=== PATIENT | female | born 1950 | race Two or more races ===

== ENCOUNTER 2022-10-24 21:27 | Inpatient (IN) | payer OTHER ==
[~2022-10-24] VITALS: Ht 185.4 cm; Wt 117.9 kg
--- NOTE | 2022-10-24 21:40 | NUR ---
, from home, c/o nausea vomiting, cough, and diarrhea x 2 weeks. Pt si aao x 4, breathing unlabored, HR at 140's. Per pt, she is s/p chemo therapy 2 weeks ago. Pt attched to monitor and pulse ox. Awaiting MD farley.
--- NOTE | 2022-10-24 21:50 | NUR ---
BLOOD DRAWN AND SENT TO LAB
[2022-10-24] MEDS ORDERED: PANTOPRAZOLE 40 MG VIAL ONE (21:55)
[2022-10-24] MEDS ORDERED: ONDANSETRON HCL/PF 4 MG/2 ML VIAL ONE (21:55)
[2022-10-24] MEDS ORDERED: MORPHINE SULFATE INJ 4 MG/ML DISP.SYRIN ONE (21:56)
[2022-10-24] MEDS ORDERED: MORPHINE SULFATE INJ 2 MG/ML DISP.SYRIN IV ONE (22:00)
[2022-10-24] MEDS ORDERED: PANTOPRAZOLE 40 MG VIAL IV ONE (22:00)
[2022-10-24] MEDS ORDERED: ONDANSETRON HCL/PF 4 MG/2 ML VIAL IVP ONE (22:00)
[2022-10-24] MEDS ORDERED: IV NS 0.9% 1,000 ML BAG IV ONE (22:00)
--- NOTE | 2022-10-24 22:00 | NUR ---
IV LINE ESTABLISHED, RAC20G
[2022-10-24] MEDS ORDERED: DILTIAZEM HCL 50 MG IV ONE (22:05)
[2022-10-24] MEDS ORDERED: DILTIAZEM HCL 50 MG IV IV ONE ×2 (22:30)
--- NOTE | 2022-10-24 22:35 | NUR ---
COVID SWAB COLLECTED, SENT TO LAB
[2022-10-24 22:44] LABS: BASOPHILS % (AUTO) 0.2 % (0.0-2.0); EOSINOPHILS % (AUTO) 0.1 % (0.0-6.0); HEMATOCRIT 36 % (33-45); HEMOGLOBIN 11.7 g/dL (11.5-14.8); LYMPHOCYTES # (AUTO) 0.9 K/uL (0.8-4.8); LYMPHOCYTES % (AUTO) 12.4 % (20.0-44.0); MEAN CORPUSCULAR HGB CONC 32 g/dl (31.0-36.0); MEAN CORPUSCULAR VOLUME 101 fL (82-100); MONOCYTES # (AUTO) 0.6 K/uL (0.1-1.30); MONOCYTES % (AUTO) 8.1 % (2.0-12.0); NEUTROPHILS # (AUTO) 5.5 K/uL (1.8-8.9); NEUTROPHILS % (AUTO) 79.2 % (43.0-81.0); PLATELET COUNT (AUTO) 142 K/uL (150-450); RED BLOOD CELL COUNT(AUTO) 3.62 MIL/uL (4.0-5.2); WHITE BLOOD COUNT (AUTO) 6.9 K/uL (4.3-11.0)
[2022-10-24 22:57] LABS: CALCIUM, SERUM 8.9 mg/dL (8.5-10.1); CARBON DIOXIDE 23 mmol/L (21-32); CHLORIDE 104 mmol/L (98-107); CREATININE 1.4 mg/dL (0.6-1.3); GLUCOSE 103 mg/dL (74-106); POTASSIUM 4.2 mmol/L (3.5-5.1); SODIUM SERUM 138 mmol/L (136-145); UREA NITROGEN, BLOOD 34 mg/dL (7-18)
[2022-10-24 23:04] LABS: ALANINE AMINOTRANSFERASE 148 U/L (12-78); ALBUMIN 2.1 g/dL (3.4-5.0); ALKALINE PHOSPHATASE 107 U/L (46-116); ASPARTATE AMINOTRANSFERASE 130 U/L (15-37); BILIRUBIN,DIRECT 0.4 mg/dL (0.0-0.2); BILIRUBIN,TOTAL 1.2 mg/dL (0.2-1.0); LIPASE 49 U/L (73-393); TOTAL PROTEIN, SERUM 6.2 g/dL (6.4-8.2)
[2022-10-24 23:14] LABS: SERUM AMMONIA < 10 umol/L (11-32)
[2022-10-25] VITALS (13 sets, daily range): BP systolic 88–125; BP diastolic 46–75
--- NOTE | 2022-10-25 00:36 | NUR ---
NOTED HR STILL AT 140-150'S, DR PENALOZA AWARE
[2022-10-25] MEDS ORDERED: AMIODARONE 150 MG/3 ML VIAL IV ONE ×4 (00:43→01:32)
--- NOTE | 2022-10-25 00:45 | NUR ---
PT TAKEN TO CT VIA [facility]
[2022-10-25] MEDS ORDERED: IV NS 0.9% 1,000 ML BAG IV ONE (01:00)
[2022-10-25] MEDS ORDERED: HYDROMORPHONE 1 MG/1 ML DISP.SYRIN IV ONE (01:30)
[2022-10-25] MEDS ORDERED: HYDROMORPHONE 1 MG/1 ML DISP.SYRIN ONE (01:31)
--- NOTE | 2022-10-25 01:51 | NUR ---
ELISA EPRP PAGED PER DR PENALOZA.
[2022-10-25] MEDS ORDERED: AMIODARONE 450 MG in IV D5W 250 ML IV PRN (02:00)
[2022-10-25] MEDS ORDERED: EMPA10TA PO (02:27)
[2022-10-25] MEDS ORDERED: MORP15TA PO (02:27)
[2022-10-25] MEDS ORDERED: CARV3.122 PO (02:27)
[2022-10-25] MEDS ORDERED: METH1POW39 MC (02:27)
[2022-10-25] MEDS ORDERED: ROPI1TAB6 PO (02:27)
[2022-10-25] MEDS ORDERED: OMEP20CA15 PO (02:27)
[2022-10-25] MEDS ORDERED: POTA-10 PO (02:27)
[2022-10-25] MEDS ORDERED: SPIR25TA6 PO (02:27)
[2022-10-25] MEDS ORDERED: TERA10CA4 PO (02:27)
[2022-10-25] MEDS ORDERED: GABA300C PO (02:27)
[2022-10-25] MEDS ORDERED: FURO20TA4 PO (02:27)
[2022-10-25] MEDS ORDERED: SACU1TAB PO (02:27)
[2022-10-25] MEDS ORDERED: DABI150C PO (02:27)
[2022-10-25] MEDS ORDERED: ACETAMINOPHEN 325 MG TABLET PO PRN (02:30)
[2022-10-25] MEDS ORDERED: Z GUARD REMEDY 4 OZ OINT TP PRN (02:30)
[2022-10-25] MEDS ORDERED: ONDANSETRON HCL/PF 4 MG/2 ML VIAL IVP PRN (02:30)
[2022-10-25] MEDS ORDERED: NOREPINEPHRINE 8 MG in IV NS 0.9% 242 ML IV PRN ×2 (02:30→12:00)
[2022-10-25] MEDS ORDERED: IV NS 0.9% 1,000 ML IV PRN (02:30)
[2022-10-25] MEDS ORDERED: MORPHINE SULFATE INJ 2 MG/ML DISP.SYRIN IV PRN (02:30)
[2022-10-25] MEDS ORDERED: MAGNESIUM HYDROXIDE 30 ML UDC PO PRN (02:30)
--- NOTE | 2022-10-25 02:30 | NUR ---
SECOND IV LINE ESTABLISHED, LAC20G
--- NOTE | 2022-10-25 02:38 | NUR ---
BED 258
--- NOTE | 2022-10-25 02:58 | NUR ---
NOTED PATIENT CONVERTED TO SR WITH HR OF 71 AT 0258. AWARE
--- NOTE | 2022-10-25 03:18 | NUR ---
FAMILY: ALISON [phone]
[2022-10-25 04:57] LABS: BASOPHILS % (AUTO) 0.2 % (0.0-2.0); EOSINOPHILS % (AUTO) 0.3 % (0.0-6.0); HEMATOCRIT 30 % (33-45); HEMOGLOBIN 9.6 g/dL (11.5-14.8); LYMPHOCYTES # (AUTO) 0.8 K/uL (0.8-4.8); LYMPHOCYTES % (AUTO) 11.9 % (20.0-44.0); MEAN CORPUSCULAR HGB CONC 32 g/dl (31.0-36.0); MEAN CORPUSCULAR VOLUME 99 fL (82-100); MONOCYTES # (AUTO) 0.7 K/uL (0.1-1.30); MONOCYTES % (AUTO) 11.1 % (2.0-12.0); NEUTROPHILS # (AUTO) 4.9 K/uL (1.8-8.9); NEUTROPHILS % (AUTO) 76.5 % (43.0-81.0); PLATELET COUNT (AUTO) 127 K/uL (150-450); WHITE BLOOD COUNT (AUTO) 6.4 K/uL (4.3-11.0)
[2022-10-25 05:19] LABS: ALBUMIN 1.5 g/dL (3.4-5.0); BILIRUBIN,TOTAL 0.8 mg/dL (0.2-1.0); CALCIUM, SERUM 7.6 mg/dL (8.5-10.1); CREATININE 1.4 mg/dL (0.6-1.3); MAGNESIUM 2.1 mg/dL (1.8-2.4); POTASSIUM 4.1 mmol/L (3.5-5.1); TOTAL PROTEIN, SERUM 4.8 g/dL (6.4-8.2)
[2022-10-25 05:40] LABS: THYROID STIMULATING HORMONE 11.065 uIU/mL (0.358-3.74)
[2022-10-25] MEDS ORDERED: PANTOPRAZOLE 40 MG TABLET.DR PO SCH (07:30)
--- NOTE | 2022-10-25 08:25 | NUR ---
AMIODARONE 0.5MG/MIN DRIP STARTED AT 0815H (10/25/22) TO RUN FOR 6 HOURS.
[2022-10-25] MEDS ORDERED: KETOROLAC TROMETHAMINE INJ 30 MG/ML VIAL IV ONE (08:30)
--- NOTE | 2022-10-25 08:30 | NUR ---
REPORT GIVEN TO KIMMY PACKER AT ICU. AWAITING TRANSFER TO FLOOR.
--- NOTE | 2022-10-25 08:31 | NUR ---
DR GABRIEL AT BEDSIDE FOR EVAL
--- NOTE | 2022-10-25 08:35 | NUR ---
RECEIPT AND REPORT CLERK NOTE PATIENT WAS BROUGHT FROM THE ER , ADMITTED TO [facility] WITH A FIB , ARRIVED WITH AMIODARONE DRIP 0.5 MCG/HR .PATIENT IS ON ROOM AIR , 98 % O2 SAT, BREATHING NONLABORED , PATIENT C/O PAIN OF THE RIGHT SIDE OF THE BODY S/P LAST CHEMO THERAPY 2WEEKS AGO R/T LIVER AND MOUTH CANCER .PATIENT HAS BILATERAL MASTECTOMY REMOVED BECAUSE OF THE CANCER .UPON ASSESSMENT NOTED THAT PATIENT HAS BOTH UPPER EXTREMITIES IN BRUISES, WOUND CONSULT ORDERED .PATIENT HAS LEFT AV IV ACCESS, SALINE LOCK WITH NS 75 ML/HR AND AMIODARONE O,5 MCG RUNNING AND RIGHT AC 20 G , FLUSHED WITHOUT RESISTANCE .BED IS AT LOWEST POSITION , CALL LIGHT WITHIN REACH WILL CONTINUE TO MONITOR
[2022-10-25] MEDS ORDERED: KETOROLAC TROMETHAMINE 15 MG/ML VIAL ONE (08:38)
[2022-10-25] MEDS ORDERED: PANTOPRAZOLE 40 MG TABLET.DR PO ONE (08:42)
[2022-10-25] MEDS ORDERED: HEPARIN SODIUM, PORCINE 5000 UNITS/1 ML VIAL SQ SCH (09:00)
[2022-10-25] MEDS ORDERED: DABIGATRAN ETEXILATE MESYLATE 150 MG CAPSULE PO SCH (09:00)
[2022-10-25] MEDS: GABAPENTIN 300 MG CAPSULE PO SCH ×3 (10:01→16:29)
[2022-10-25] MEDS: CARVEDILOL 3.125 MG TABLET PO SCH ×2 (10:05→16:29)
[2022-10-25] MEDS ORDERED: DIGOXIN INJ 0.5 MG/2 ML AMPUL IV SCH (12:00)
--- NOTE | 2022-10-25 12:35 | NUR ---
RN NOTE PATIENT WAS ADMITTED WITH AMIODARONE RUNNING IV , O.5 MCG IN HOUR AT 1130 IT WAS DISCONTINUED , WAS NOT ABLE TO DOCUMENT IV SPREAD SHIT AFTER IT WAS DISCONTINUED.
--- NOTE | 2022-10-25 16:58 | NUR ---
RN NOTE T/C FROM [facility] SPOKE WITH RN , PATIENT IS GOING TO THE [facility] TELE ROOM 5201 , DR Desi Jaramillo , , WILL PICK THE PATIENT UP AT 1800
--- NOTE | 2022-10-25 18:14 | NUR ---
RN NOTE PATIENT WAS PICKED UP BY EMT AND TRANSFERED TO THE [facility], DISCHARGE REPORT WAS GIVEN VERBALY AND IN WRITTEN TOTHE EMT JOSIE AND TO THE BLANKA RN AT THE [facility] . PATIENT DISCHARGED FROM THE [facility]
== END 2022-10-25 18:00 | disposition short-term general hospital (02) | DRG 280 ==
LOC: ER 21:29 → ICU 10-25 02:44
PROVIDERS: ADMIT Nurse Practitioner Family; ATTEND Nurse Practitioner Acute Care
DX: I48.92 Unspecified atrial flutter (principal); N17.0 Acute kidney failure with tubular necrosis; I21.A1 Myocardial infarction type 2; C22.9 Malignant neoplasm of liver, not specified as primary or secondary; I82.411 Acute embolism and thrombosis of right femoral vein; J98.11 Atelectasis; E44.0 Moderate protein-calorie malnutrition; I48.91 Unspecified atrial fibrillation; Z85.3 Personal history of malignant neoplasm of breast; Z85.819 Personal history of malignant neoplasm of unspecified site of lip, oral cavity, and pharynx; Z92.21 Personal history of antineoplastic chemotherapy; Z90.13 Acquired absence of bilateral breasts and nipples; Z90.710 Acquired absence of both cervix and uterus; D63.8 Anemia in other chronic diseases classified elsewhere; I11.0 Hypertensive heart disease with heart failure; I50.9 Heart failure, unspecified; D69.6 Thrombocytopenia, unspecified; K80.20 Calculus of gallbladder without cholecystitis without obstruction; K82.8 Other specified diseases of gallbladder; Z88.0 Allergy status to penicillin; E88.09 Other disorders of plasma-protein metabolism, not elsewhere classified
CPT/HCPCS: 36415; 71045-TC; 80048-TC; 80053-TC; 80076-TC; 82140-TC; 83690-TC; 83735-TC; 84100-TC; 84439-TC; 84443-TC; 84484-TC; 85025-TC; 87081-TC; 93307-TC; 93970-TC; A4223; C9113; C9803; G0378; J0282; J1160; J1170; J1885; J2270; J2405; J3490; J7030; J7050; J7060